=== PATIENT | female | born 1965 | race Caucasian/White ===

== ENCOUNTER 2016-09-17 04:27 | Emergency (ER) | payer OTHER ==
[~2016-09-17] VITALS: Ht 167.6 cm; Wt 68.0 kg
--- NOTE | 2016-09-17 05:06 | ED GENERAL ADULT ---
History of Present Illness General Chief Complaint: General Adult Stated Complaint: " CONSTANT COUGH X 2DAYS AND CAN'T SLEEP" Source: patient Exam Limitations: no limitations Vital Signs & Intake/Output Vital Signs & Intake/Output Vital Signs Date Time Temp Pulse Resp B/P B/P Pulse O2 O2 Flow FiO2 Mean Ox Delivery Rate 09/17 0628 97.8 75 20 146/82 97 Room Air 09/17 0633 96.8 74 20 151/84 97 Room Air 09/17 0438 96.9 100 18 158/81 96 Room Air Triage Note: PT TO ED WITH COMPLAINTS OF URI SYMPTOMS AND A CONSTANT NONPRODUCTIVE COUGH XFEW DAYS. PT ALSO COMPLAINS OF PAIN IN SHOULDER BLADES, NECK AND HIPS. PER PT, "I HAVENT BEEN ABLE TO SLEEP BECAUSE THE COUGH WORSENS." Triage Nurses Notes Reviewed? yes HPI: Patient presents for evaluation of a burning pain involving the shoulder blades neck and arms. In addition patient is experiencing hip and buttock pain as well. The pains began gradually yesterday and are described as a burning sensation with lying down but a heavy feeling with sitting. The pains get worse with coughing. The cough has been a dry cough over the past few days associated with a recent cold. Aside from a persistent runny nose the cold has resolved. The patient denies any associated rashes redness or swelling. She occasionally gets itching of the sternal region as well. (LAKEISHA JIMÉNEZ,JHONATAN Frederick) Allergies Coded Allergies: No Known Allergies (09/17/16) Reconcile Medications No Known Home Medications (SINDY JIMÉNEZ,CLAIRE Blue) Past History Travel History Traveled to [place] past 21 day No Medical History Any Pertinent Medical History? see below for history Surgical History Surgical History: non-contributory Psychosocial History What is your primary language Micronesian Tobacco Use: Current Daily Use Daily Tobacco Use Amount/Type: => 5 Cigarettes daily ETOH Use: denies use Illicit Drug Use: denies illicit drug use Family History Hx Contributory? No (LAKEISHA JIMÉNEZ,JHONATAN Frederick) Review of Systems Review of Systems Constitutional: Reports: no symptoms. EENTM: Reports: no symptoms. Respiratory: Reports: no symptoms. Cardiovascular: Reports: no symptoms. GI: Reports: no symptoms. Genitourinary: Reports: no symptoms. Musculoskeletal: Reports: see HPI. Skin: Reports: no symptoms. Neurological/Psychological: Reports: no symptoms. Hematologic/Endocrine: Reports: no symptoms. Immunologic/Allergic: Reports: no symptoms. All Other Systems: Reviewed and Negative (LAKEISHA JIMÉNEZ,JHONATAN Frederick) Physical Exam Physical Exam General Appearance: SEE BELOW Comments: Gen.: Well-nourished, well-developed, no acute respiratory distress. Head: Normocephalic, atraumatic. Eyes: Normal inspection bilaterally Ears: Normal inspection bilaterally Nose: Normal inspection Throat/mouth : Moist mucosa Neck: Supple, full range of motion, no goiter Heart: Regular rate and rhythm, no murmurs rubs or gallops Lungs: Clear to auscultation bilaterally with normal air entry Chest: Nontender Back: Normal range of motion Abdomen: Soft, diffuse tenderness without rebound or guarding, nondistended, normal bowel sounds, easily palpable aortic pulsations Extremities: Normal range of motion grossly, equal radial pulses, no cyanosis clubbing or edema, equal radial and posterior tibialis pulses Neurologic: Cranial nerves grossly intact, speech is clear Skin: warm and dry Psychiatric: Calm, cooperative, no apparent delusions or hallucinations Core Measures ACS in differential dx? No CVA/TIA Diagnosis: No Severe Sepsis Present: No Septic Shock Present: No (LAKEISHA JIMÉNEZ,JHONATAN Frederick) Progress Differential Diagnoses I considered the following diagnoses in my evaluation of the patient: Muscle strain, aortic disease, viral syndrome Plan of Care: Orders Procedure Date/time Status TROPONIN LEVEL 09/17 0505 Complete WESTERGREN SED RATE 09/17 0505 Complete CBC WITHOUT DIFFERENTIAL 09/17 0505 Complete BASIC METABOLIC PANEL 09/17 0505 Complete EKG 09/17 0505 Active Laboratory Tests 09/17/16 0518: Anion Gap 10, Estimated GFR > 60, BUN/Creatinine Ratio 17.1, Glucose 103 H, Calcium 9.8, Troponin I < 0.01, CBC w Diff NO MAN DIFF REQ, RBC 4.79, MCV 89.6, MCH 30.1, RDW 13.1, MPV 7.9, Gran % 50.1, Lymphocytes % 37.6, Monocytes % 9.0, Eosinophils % 2.5, Basophils % 0.8, Absolute Granulocytes 4.5, Absolute Lymphocytes 3.4, Absolute Monocytes 0.8 H, Absolute Eosinophils 0.2, Absolute Basophils 0.1, PUBS MCHC 33.6, ESR Westergren 23 H Initial ED EKG: NSR, rate (80), no ST T wave changes Comments: 09/17/2016 8:06:42 AM patient signed out to Dr. Vasquez at [employer] [facility]. (LAKEISHA JIMÉNEZ,JHONATAN Frederick) Diagnostic Imaging: Viewed by Me: CT Scan. Discussed w/RAD: CT Scan. Radiology Impression: PATIENT: UCHE DAI PRESENT AGE: 51 PATIENT ACCOUNT NO: [id number] : 64 LOCATION: [facility] ORDERING PHYSICIAN: JHONATAN SUAZO MD SERVICE DATE: 09/17/16 EXAM TYPE: CAT - CT ABD & PELVIS ANGIOGRAM; CTA CHEST EXAMINATION: CT ANGIOGRAM CHEST CT angiogram abdomen/pelvis CLINICAL INFORMATION: Burning back pain. Hypertension. Age 51. COMPARISON: None TECHNIQUE: Axial imaging of the chest, abdomen, and pelvis is performed using 95 mL Optiray 350 contrast. Optivantage protocol used. Additional 2-D coronal and sagittal maximum intensity projection MIP images are generated on the CT workstation. DLP: 771 mGy-cm FINDINGS: CT CHEST LUNGS/PLEURA : The central airways are clear and there is no endobronchial lesion or bronchiectasis. There is no airspace consolidation, pleural reaction, or effusion. No pneumothorax or pneumomediastinum. There is a questionable pleural- based nodule posterior right apex image 12/115 measuring under 4 mm. MEDIASTINUM : The heart is normal in size. There is no pericardial effusion or right ventricular strain. The pulmonary arteries enhance normally. There is no filling defect or intraluminal stranding or other changes to suggest acute or chronic pulmonary embolism. The thoracic aorta is normal in caliber. There is no aneurysmal enlargement or dissection. AXILLA: No lymphadenopathy. OSSEOUS STRUCTURES: Unremarkable. FINDINGS: CT ABDOMEN AND PELVIS WITH CONTRAST LIVER, GALLBLADDER, AND BILIARY TREE: Imaging is performed during arterial phase. The liver is normal in size and smooth in contour. There is no arterial enhancing lesion or visible mass or intrahepatic biliary ductal dilatation gallbladder is unremarkable. No common duct distention. PANCREAS: Unremarkable. No pancreatic ductal distention or peripancreatic inflammatory changes. SPLEEN: Normal in size. ADRENAL GLANDS: Unremarkable. KIDNEYS AND URETERS: Kidneys enhance symmetrically. There is no mass, hydronephrosis, hydroureter, or perinephric stranding. BLADDER: Distended. Otherwise unremarkable. GASTROINTESTINAL TRACT: No bowel obstruction or focal inflammatory changes demonstrated in bowel or mesentery. Appendix is normal. No ascites, free air, or loculated fluid collection. ABDOMINAL WALL: No significant hernia is appreciated. LYMPH NODES: No lymphadenopathy. VASCULAR: The abdominal aorta is normal in caliber and there is no aneurysmal enlargement or dissection. There are scattered atherosclerotic calcifications mid and distal aorta or an common iliac arteries. PELVIC VISCERA: The uterus is tilted towards the left. It is difficult to exclude fibroid. No visible pelvic mass or ascites. OSSEOUS STRUCTURES: Unremarkable. IMPRESSION: 1. Normal thoracic aorta. No aneurysmal enlargement or dissection. 2. No pulmonary embolism. 3. No abdominal aortic aneurysm or dissection. Atherosclerotic calcifications mid and distal aorta and iliac arteries. 4. Questionable pleural- based nodule posterior right upper lobe under 4 mm. 5. Uterus tilted towards left. Difficult to exclude fibroid. No visible pelvic mass or ascites. Reference : The Fleischner Society recommendations for management of incidentally detected pulmonary nodules in adults age 35 and greater are based on average nodule size and patient risk category. The recommendations do not apply to lung cancer screening, patients with immunosuppression, or patients with known primary cancer. Single solid nodule average size < 6 mm: Low Risk Patient: No routine follow-up. High Risk Patient: Optional CT at 12 months. Certain patients at high risk with suspicious nodule morphology, upper lobe location, or both may warrant 12-month follow-up. DICTATED BY: LINETTE WHALEN MD DATE/TIME DICTATED:09/17/16831 DEDICATED DRIVER:RASHARD DATE/TIME TRANSCRIBED:09/17/16831 CONFIDENTIAL, DO NOT COPY WITHOUT APPROPRIATE AUTHORIZATION. <Electronically signed in Other Vendor System> SIGNED BY: LINETTE WHALEN MD 09/17/16 0905 (CLAIRE VASQUEZ MD) Departure Departure Condition: Stable Clinical Impression Primary Impression: Back pain Referrals: ZEESHAN BENITEZ MD (PCP/Family) Departure Forms: Customer Survey General Discharge Information (LAKEISHA JIMÉNEZ,JHONATAN Frederick) Departure Disposition: HOME OR SELF CARE Additional Instructions: RETURN IF SYMPTOMS WORSEN OR FOR ANY CONCERNS Prescriptions: Current Visit Scripts No Known Home Medications (CLAIRE VASQUEZ MD) Critical Care Note Critical Care Note Critical Care Time: non-applicable (CLAIRE VASQUEZ MD)
[2016-09-17 05:27] LABS: ABSOLUTE BASOPHIL COUNT 0.1 /CUMM (0.0-0.2); ABSOLUTE EOSINOPHIL COUNT 0.2 /CUMM (0.0-0.7); ABSOLUTE GRANULOCYTE CT 4.5 /CUMM (1.4-6.5); ABSOLUTE LYMPH COUNT 3.4 /CUMM (1.2-3.4); ABSOLUTE MONOCYTE COUNT 0.8 /CUMM (0.10-0.60); BASOPHIL % 0.8 % (0.0-2.0); EOSINOPHIL % 2.5 % (0-5); GRANULOCYTE % 50.1 % (42.2-75.2); HEMATOCRIT 42.9 % (37-47); MEAN CORPUSCULAR HGB 30.1 PG (27.0-31.0); MEAN CORPUSCULAR HGB CONC 33.6 G/DL (33.0-37.0); MEAN CORPUSCULAR VOLUME 89.6 FL (81.0-99.0); MEAN PLATELET VOLUME 7.9 FL (7.4-10.4); PLATELET COUNT 275 /CUMM (130-400); RBC DISTRIBUTION WIDTH 13.1 % (11.5-14.5); RED BLOOD CELL CT 4.79 /CUMM (4.20-5.40)
[2016-09-17 07:28] VITALS: BP 146/82
--- NOTE | 2016-09-17 09:05 | CT SCAN REPORT ---
EXAMINATION: CT ANGIOGRAM CHEST CT angiogram abdomen/pelvis CLINICAL INFORMATION: Burning back pain. Hypertension. Age 51. COMPARISON: None TECHNIQUE: Axial imaging of the chest, abdomen, and pelvis is performed using 95 mL Optiray 350 contrast. Optivantage protocol used. Additional 2-D coronal and sagittal maximum intensity projection MIP images are generated on the CT workstation. DLP: 771 mGy-cm FINDINGS: CT CHEST LUNGS/PLEURA: The central airways are clear and there is no endobronchial lesion or bronchiectasis. There is no airspace consolidation, pleural reaction, or effusion. No pneumothorax or pneumomediastinum. There is a questionable pleural-based nodule posterior right apex image 12/115 measuring under 4 mm. MEDIASTINUM: The heart is normal in size. There is no pericardial effusion or right ventricular strain. The pulmonary arteries enhance normally. There is no filling defect or intraluminal stranding or other changes to suggest acute or chronic pulmonary embolism. The thoracic aorta is normal in caliber. There is no aneurysmal enlargement or dissection. AXILLA: No lymphadenopathy. OSSEOUS STRUCTURES: Unremarkable. FINDINGS: CT ABDOMEN AND PELVIS WITH CONTRAST LIVER, GALLBLADDER, AND BILIARY TREE: Imaging is performed during arterial phase. The liver is normal in size and smooth in contour. There is no arterial enhancing lesion or visible mass or intrahepatic biliary ductal dilatation gallbladder is unremarkable. No common duct distention. PANCREAS: Unremarkable. No pancreatic ductal distention or peripancreatic inflammatory changes. SPLEEN: Normal in size. ADRENAL GLANDS: Unremarkable. KIDNEYS AND URETERS: Kidneys enhance symmetrically. There is no mass, hydronephrosis, hydroureter, or perinephric stranding. BLADDER: Distended. Otherwise unremarkable. GASTROINTESTINAL TRACT: No bowel obstruction or focal inflammatory changes demonstrated in bowel or mesentery. Appendix is normal. No ascites, free air, or loculated fluid collection. ABDOMINAL WALL: No significant hernia is appreciated. LYMPH NODES: No lymphadenopathy. VASCULAR: The abdominal aorta is normal in caliber and there is no aneurysmal enlargement or dissection. There are scattered atherosclerotic calcifications mid and distal aorta or an common iliac arteries. PELVIC VISCERA: The uterus is tilted towards the left. It is difficult to exclude fibroid. No visible pelvic mass or ascites. OSSEOUS STRUCTURES: Unremarkable. IMPRESSION: 1. Normal thoracic aorta. No aneurysmal enlargement or dissection. 2. No pulmonary embolism. 3. No abdominal aortic aneurysm or dissection. Atherosclerotic calcifications mid and distal aorta and iliac arteries. 4. Questionable pleural-based nodule posterior right upper lobe under 4 mm. 5. Uterus tilted towards left. Difficult to exclude fibroid. No visible pelvic mass or ascites. Reference: The Fleischner Society recommendations for management of incidentally detected pulmonary nodules in adults age 35 and greater are based on average nodule size and patient risk category. The recommendations do not apply to lung cancer screening, patients with immunosuppression, or patients with known primary cancer. Single solid nodule average size < 6 mm: Low Risk Patient: No routine follow-up. High Risk Patient: Optional CT at 12 months. Certain patients at high risk with suspicious nodule morphology, upper lobe location, or both may warrant 12-month follow-up.
== END 2016-09-17 09:21 ==
LOC: ERH 04:27
PROVIDERS: Emergency Medicine
DX: M54.9 Dorsalgia, unspecified (principal)
CPT/HCPCS: 74174; 93005; 93010; J1885; J2405